=== PATIENT | female | born 1955 | race Two or more races ===

== ENCOUNTER 2019-10-01 19:20 | Emergency (ER) | payer SELFPAY ==
[~2019-10-01] VITALS: Ht 154.9 cm; Wt 52.2 kg
[2019-10-01] MEDS ORDERED: ACETAMINOPHEN WITH CODEINE 300/30MG TABLET PO ONE (21:15)
[2019-10-01 22:22] VITALS: BP 121/63
== END 2019-10-01 22:25 | disposition home or self-care (01) ==
LOC: ER 19:20
DX: S16.1XXD Strain of muscle, fascia and tendon at neck level, subsequent encounter (principal); G89.21 Chronic pain due to trauma; R51 Headache; Y04.2XXD Assault by strike against or bumped into by another person, subsequent encounter; R03.0 Elevated blood-pressure reading, without diagnosis of hypertension
CPT/HCPCS: 99283